=== PATIENT | male | born 1975 | race Caucasian/White ===

== ENCOUNTER 2024-02-28 06:49 | Day surgery (SDC) | payer MEDICAID ==
[2024-02-28] MEDS: LACTATED RINGERS 1,000 ML IV ONE ×2 (07:12→08:33)
[2024-02-28] MEDS ORDERED: lidocaine 1% 20 ML MDV ONE (07:23)
[2024-02-28] MEDS: LIDOCAINE 1% 50 ML MDV SUBQ ONE ×2 (07:26)
--- NOTE | 2024-02-28 07:33 | ANESTHESIA ---
Pre-Anesthesia VS, & Labs - Diagnosis desires sterilization - Procedure vasectomy Vital Signs: Temp Pulse Resp BP Pulse Ox O2 Flow Rate 36.4 C L 69 19 128/76 100 02/28/24 07:05 02/28/24 07:05 02/28/24 07:05 02/28/24 07:05 02/28/24 07:05 Height: 5 ft 11 in Weight (kg): 71.4 kg Body Mass Index: 21.9 BMI Classification: Normal - NPO >8 hours Home Medications and Allergies Home Medications: Ambulatory Orders Multivitamin 1 each PO DAILY 02/22/24 hydrOXYzine HCL [Hydroxyzine HCl] 75 mg PO QPM 02/22/24 Multivitamin 1 each PO DAILY 02/22/24 hydrOXYzine HCL [Hydroxyzine HCl] 75 mg PO QPM 02/22/24 Allergies/Adverse Reactions: Allergies Allergy/AdvReac Type Severity Reaction Status Date / Time No Known Drug Allergies Allergy Verified 02/22/24 16:09 Anes History & Medical History - Anesthetic History Anesthesia Complications: reports: No previous complications - Medical History Cardiovascular: reports: None Pulmonary: reports: None Gastrointestinal: reports: None Urinary: reports: Kidney stones Neuro: reports: None Musculoskeletal: reports: None Endocrine/Autoimmune: reports: None Skin: reports: None Smoking Status: Never smoker Psychosocial: reports: Cannabis (daily smoke) History of Cancer?: No - Surgical History Eyes Ears Nose Throat (EENT): reports: Tonsil/Adenoidectomy Exam General: Alert, Oriented x3, Cooperative, No acute distress Dental: WNL Mouth Openin Fingerbreadth Neck Mobility: Normal Mallampati classification: II Thyromental Distance: 4-6 cm Mental/Cognitive Status: Alert/Oriented X3, Normal for patient Plan Anesthesia Type: General, Total IV Consent for Procedure(s) Verified and Reviewed: Yes Code Status: Attempt Resuscitation ASA classification: 2-Mild systemic disease Is this case an emergency?: No
[2024-02-28] MEDS ORDERED: PROPOFOL 500 MG/50 ML 500 MG/50 ML VIAL ONE (07:36)
[2024-02-28] MEDS ORDERED: fentaNYL 100 MCG/2 ML VIAL ONE (07:36)
[2024-02-28] MEDS ORDERED: MIDAZOLAM 2 MG/2 ML VIAL ONE (07:36)
[2024-02-28] MEDS ORDERED: KETAMINE 500 MG/10 ML VIAL ONE (08:05)
[2024-02-28] MEDS ORDERED: ONDANSETRON 4 MG/2 ML VIAL ONE (08:25)
[2024-02-28] MEDS ORDERED: fentaNYL 100 MCG/2 ML VIAL IVP PRN (08:44)
[2024-02-28] MEDS ORDERED: ONDANSETRON 4 MG/2 ML VIAL IVP PRN (08:44)
[2024-02-28] MEDS ORDERED: HYDROmorphone 0.5 MG/0.5 ML SYRINGE IVP PRN (08:44)
[2024-02-28] MEDS ORDERED: ATROPINE ABBOJECT 1 MG/10 ML SYRINGE IVP PRN (08:44)
[2024-02-28] MEDS ORDERED: MORPHINE 2 MG/ML CARPUJECT IVP PRN (08:44)
[2024-02-28] MEDS ORDERED: NALOXONE 0.4 MG/ML VIAL IVP PRN (08:44)
--- NOTE | 2024-02-28 08:46 | Discharge Plan ---
Discharge Plan Problem Reviewed?: Yes Disposition: Home, Self Care Condition: Good Diet: Regular Activity Restrictions: Additional Comments (as instructed) Shower Restrictions: No Driving Restrictions: No Instruction Topics: Vasectomy No Scalpel Additional Instructions or Follow Up instructions: After three months, contact Dr Srivastava's office to arrange for you to drop off a semen sample at a lab to confirm no more sperm No Smoking: If you smoke, Please STOP! Call for help. Follow-up with: Franko Gibbs, MAO, PROFESSOR OF LITERATURE, [employer]UD[employer]AN [Primary Care Provider] -
--- NOTE | 2024-02-28 08:48 | OPERATIVE REPORT ---
Operative Report - General Procedure Date: 02/28/24 Planned Procedure: Bilateral Vasectomy Pre-Op Diagnosis: Elective Sterilization Procedure Performed: Bilateral Vasectomy Post Op Diagnosis: Elective Sterilization - Procedure Note Primary Surgeon: Atif Anesthesia Provider: WINDY Parham Anesthesia Technique: General LMA Pathology: none Estimated Blood Loss (mL): 0 Findings: Routine vasectomy - Other Other Information/Narrative: After informed consent obtained patient brought to the OR and laid in supine position. The patient was anesthetized per anesthesia protocols and then prepped and draped in usual sterile fashion. A formal timeout was performed reconfirming the patient, procedure and laterality He is vas deferens identified through his right hemiscrotum. 1% lidocaine was used as local. Using a sharp mosquito is scrotal tissue was dissected away and his vas sheath was grasped using a ring clamp. This was sharply incised and the vas was identified and pulled out. It was clamped on both sides and the intervening 1 cm segment was cauterized away. The ends were cauterized as well. The ends were suture-ligated with chromic suture and then the distal end was buried using a fascial interposition stitch using 3-0 chromic suture. There was no bleeding. His skin was closed using a 3-0 chromic horizontal mattress stitch. An identical procedure performed on the left side. Band-Aids were placed. This concluded the procedure, the patient tolerated procedure well. He was brought to the PACU without further incident. He will have a semen analysis in 3 months
[2024-02-28] MEDS ORDERED: LACTATED RINGERS 1,000 ML IV SCH (09:00)
[2024-02-28 09:51] VITALS: BP 152/75; O2SAT 99
--- NOTE | 2024-02-28 10:10 | ANESTHESIA POST OP EVALUATION ---
Anesthesia Post Eval - Post Anesthesia Eval Vitals: Last Vital Signs Temp 36.0 C L 02/28/24 09:10 Pulse 64 02/28/24 09:30 Resp 18 02/28/24 09:30 BP 152/75 H 02/28/24 09:30 Pulse Ox 99 02/28/24 09:30 O2 Flow Rate CV Function Including HR & BP: Stable Pain Control: Satisfactory Nausea & Vomiting: Negative Mental Status: Baseline Respiratory Status: Airway Patent Hydration Status: Satisfactory Anesthesia Complications: None
== END 2024-02-28 06:50 | disposition home or self-care (01) ==
LOC: SDS 06:49
PROVIDERS: ATTEND Urology
DX: Z30.2 Encounter for sterilization (principal)
CPT/HCPCS: 55250; J7120